=== PATIENT | male | born 1995 | race Two or more races ===

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

== ENCOUNTER 2021-04-17 09:52 | Emergency (ER) | payer MEDICAID ==
[~2021-04-17] VITALS: Ht 165.1 cm; Wt 61.2 kg
[2021-04-17 11:14] VITALS: BP 110/68
[2021-04-17] MEDS ORDERED: ERYT-124 PO (11:45)
[2021-04-17] MEDS ORDERED: ACET-1080 PO (11:45)
[2021-04-17] MEDS ORDERED: AZIT500T66 PO (11:46)
== END 2021-04-17 12:01 | disposition home or self-care (01) ==
LOC: ER 09:52
DX: U07.1 COVID-19 (principal); M79.10 Myalgia, unspecified site; J45.909 Unspecified asthma, uncomplicated; Z86.2 Personal history of diseases of the blood and blood-forming organs and certain disorders involving the immune mechanism; Z79.2 Long term (current) use of antibiotics; Z79.899 Other long term (current) drug therapy
CPT/HCPCS: 36415; 71045; 87426

== ENCOUNTER 2024-11-13 16:07 | Emergency (ER) | payer MEDICAID ==
[~2024-11-13] VITALS: Ht 162.6 cm; Wt 61.3 kg
[~2024-11-13 16:07] MED LIST changes: +ACET-1080 PO; +AZIT500T66 PO
[2024-11-13 16:40] VITALS: BP 115/83; PULSE 100; RESP 18; TEMP 98.6; O2SAT 97
[2024-11-13] MEDS: TRANEXAMIC ACID 1,000 MG in SODIUM CHL 0.9% 100 ML IV ONE (16:50)
[2024-11-13] MEDS: TRANEXAMIC ACID 10 ML ONE (16:50)
--- NOTE | 2024-11-13 17:15 | ED.PDOC ---
History of Present Illness HPI Comments 29 y/o M, presents to the ED for CC of tooth pain. Patient states, that he had has his upper wisdom teeth removed yesterday (11/12/24) and has since, been bleeding. Patient reports, that he called his dentist today (11/13/24) and was told to apply gauze, bite down, and hold pressure however bleeding has not ceased. Patient has visible blood seeping open cavities to teeth #1 and #16. Patient denies fever, chills, sweats, headache, nausea, or vomiting. No other symptoms or modifying factors present at this time. Chief Complaint: Tooth Pain Time Seen by MD: 16:45 Primary Care Provider: MARY JANE Clayton Notes: Nurses Notes, Medications, Allergies Allergies: Coded Allergies: NO KNOWN ALLERGIES (Unverified , 06/09/11) Home Meds Active Scripts Azithromycin (Azithromycin) 500 Mg Tab, 500 MG PO DAILY for 5 Days, #5 TAB 0 Refills Prov:DAYANA ESPINOZA 04/17/21 Acetaminophen (Tylenol 8 Hour Arthritis) 650 Mg Tab, 650 MG PO TID for 10 Days, #30 TAB Prov:DAYANA ESPINOZA 04/17/21 Reported Medications Albuterol (Albuterol) Pow 09/16/11 Information Source: Patient Mode of Arrival: Ambulatory Severity: Moderate Timing: Days Duration: Since onset Prehospital treatment: None Past Medical History PAST MEDICAL HISTORY: Anemia, Asthma, Denies Surgical History: Denies all surgeries Family History Family History: Reviewed,noncontributory to illness, No family hx of DM, No family hx of HTN Social History Smoker: Non-Smoker Alcohol: Denies ETOH Use Drugs: Denies Drug Use Lives In: Home Constitutional: denies: chills, diaphoresis, fatigue, fever, malaise, sweats, weakness, others EENTM: denies: blurred vision, double vision, ear bleeding, ear discharge, ear drainage, ear pain, ear ringing, eye pain, eye redness, hearing loss, mouth pain, mouth swelling, nasal discharge, nose bleeding, nose congestion, nose pain, photophobia, tearing, throat pain, throat swelling, voice changes, others Respiratory: denies: cough, hemoptysis, orthopnea, SOB at rest, shortness of breath, SOB with excertion, stridor, wheezing, others Cardiovascular: denies: chest pain, dizzy spells, diaphoresis, Dyspnea on exertion, edema, irregular heart beat, left arm pain, lightheadedness, palpitations, PND, syncope, others Gastrointestinal: denies: abdomen distended, abdominal pain, blood streaked bowels, constipated, diarrhea, dysphagia, difficulty swallowing, hematemesis, melena, nausea, poor appetite, poor fluid intake, rectal bleeding, rectal pain, vomiting, others Genitourinary: denies: burning, dysuria, flank pain, frequency, hematuria, incontinence, penile discharge, penile sore, pain, testicle pain, testicle swelling, urgency, others Neurological: denies: dizziness, fainting, headache, left sided numbness, left sided weakness, numbness, paresthesia, pre-existing deficit, right sided numbness, right sided weakness, seizure, speech problems, tingling, tremors, weakness, others Musculoskeletal: denies: back pain, gout, joint pain, joint swelling, muscle pain, muscle stiffness, neck pain, others Integumetry: denies: bruises, change in color, change in hair/nails, dryness, laceration, lesions, lumps, rash, wounds, others Allergic/Immunocompromised: denies: Difficulty Healing, Frequent Infections, Hives, Itching, others Hematologic/Lymphatic: denies: anemia, blood clots, easy bleeding, easy bruising, swollen glands, others Endocrine: denies: excessive hunger, excessive sweating, excessive thirst, excessive urination, flushing, intolerance to cold, intolerance to heat, unexplained weight gain, unexplained weight loss, others Psychiatric: denies: anxiety, bipolar disorder, depression, hopeless, panic disorder, schizophrenia, sleepless, suicidal, others All Other Systems: Reviewed and Negative Physical Exam General Appearance: No Apparent Distress, Normal HEENT: Normal ENT Inspection, Pharynx Normal, Other (open#1 and #16 teeth cavities) Neck: Full Range of Motion, Non-Tender, Normal, Normal Inspection Respiratory: Chest Non-Tender, Lungs Clear, No Accessory Muscle Use, No Respiratory Distress, Normal Breath Sounds Cardiovascular: No Edema, No Murmur, No Gallop, Normal Peripheral Pulses, Regular Rate/Rhythm Breast Exam: Deferred Gastrointestinal: No Organomegaly, Non Tender, No Pulsatile Mass, Normal Bowel Sounds, Soft Genitalia: Deferred Pelvic: Deferred Rectal: Deferred Extremities: No calf tenderness, Normal capillary refill, Normal inspection, Normal range of motion, Non-tender, No pedal edema Musculoskeletal : Apperance: Normal Neurologic: Alert, special needs librarian II-XII nml as Tested, No Motor Deficits, Normal Affect, Normal Mood, No Sensory Deficits Cerebellar Function: Normal Reflexes: Normal Skin: Dry, Normal Color, Warm Lymphatic: No Adenopathy Was a procedure done? Was a procedure done?: No Differential Dx Considerations may include: wisdom teeth post extraction cavities X-Ray, Labs, Meds, VS Vital Signs Date Time Temp Pulse Resp B/P (MAP) Pulse Ox O2 Delivery O2 Flow Rate FiO2 11/13/24 16:40 Room Air* 0 21 11/13/24 16:40 98.6 100 18 115/83 (94) 97 98.6 11/13/24 16:20 98.6 110 18 115/83 (94) 97 98.6 X-Ray, Labs, Meds, VS Comment Bleeding controlled after soaking gauze in TXA and placing over the wounds for 30 minutes. Time of 1ST Reevaluation: 17:15 Reevaluation 1ST: Improved Patient Education/Counseling: Diagnosis, Treatment, Need For Follow Up Family Education/Counseling: No Family Present SEPSIS Sepsis Screen Vital Signs Date Time Temp Pulse Resp B/P (MAP) Pulse Ox O2 Delivery O2 Flow Rate FiO2 11/13/24 16:40 Room Air* 0 21 11/13/24 16:40 98.6 100 18 115/83 (94) 97 98.6 11/13/24 16:20 98.6 110 18 115/83 (94) 97 98.6 Departure 1 Departure Time of Disposition: 17:37 Impression: Primary Impression: Surgical wound hemorrhage after dental procedure Disposition: 01 HOME / SELF CARE / HOMELESS Condition: Fair Discharged With: Self Critical Care Note Critical Care Time?: No Stability Stability form required: No Heart Score Heart Score: Heart Score Response (Comments) Value History N/A 0 EKG N/A 0 Age N/A 0 Risk Factors N/A 0 Troponin N/A 0 Total 0 I personally scribed for YADIRA PEREZ ([email or web address]) on 11/13/24 at 17:15. Electronically submitted by Esme Dahl ([email or web address]). YADIRA PEREZ [facility] Nov 13, 2024 17:15
== END 2024-11-13 18:00 | disposition home or self-care (01) ==
LOC: ER 16:07
DX: L76.22 Postprocedural hemorrhage of skin and subcutaneous tissue following other procedure (principal); J45.909 Unspecified asthma, uncomplicated; Z86.2 Personal history of diseases of the blood and blood-forming organs and certain disorders involving the immune mechanism; Z79.899 Other long term (current) drug therapy